=== PATIENT | male | born 1985 | race Hispanic/Latino ===

== ENCOUNTER 2017-12-11 08:18 | Inpatient (IN) | payer SELFPAY ==
[2017-12-11 08:54] LABS: #Basophils 0.1 thou/uL (0.0-0.2); #Eosinphils 0.2 thou/uL (0.0-0.7); #Lymphocytes 2.5 thou/uL (1.20-3.40); #Monocytes 0.5 thou/uL (0.11-0.59); #Neutrophils 4.5 thou/uL (1.40-6.50); %Basophils 0.8 % (0.0-1.0); %Eosinophils 2.2 % (0.0-10.0); %Lymphocytes 32.2 % (21.0-51.0); %Neutrophils 58.8 % (42.0-75.0); Hemoglobin 16.7 g/dL (14.0-18.0); Mean Corpuscular Volume 88.9 fL (78.0-98.0); Platelet Count 258 thou/uL (130-400); RBC Distribution Width 11.5 % (11.5-14.5); Red Blood Cell (RBC) Count 5.23 mill/uL (4.70-6.10); White Blood Cell (WBC) Count 7.7 thou/uL (4.8-10.8)
[2017-12-11 09:17] LABS: ALT (SGPT) 134 U/L (8-55); AST (SGOT) 42 U/L (5-34); Albumin 4.1 g/dL (3.5-5.0); Alkaline Phosphatase 95 U/L (40-150); Anion Gap 15 mmol/L (10-20); BUN (Urea Nitrogen) 17 mg/dL (8.9-20.6); Bilirubin, Total 0.6 mg/dL (0.2-1.2); Calc. Creatinine Clearance 0 mL/min (70-130); Calcium 9.3 mg/dL (7.8-10.44); Carbon Dioxide 24 mmol/L (22-29); Chloride 96 mmol/L (98-107); Estimated GFR-MDRD 59; Globulin 3.3 g/dL (2.4-3.5); Lipase 33 U/L (8-78); Potassium 4.2 mmol/L (3.5-5.1); Protein, Total 7.4 g/dL (6.0-8.3); Sodium 131 mmol/L (136-145)
[2017-12-11 09:25] LABS: Glucose 583 mg/dL (70-105)
[2017-12-11] MEDS ORDERED: Ondansetron ODT 4 MG TAB ONE (09:28)
[2017-12-11] MEDS ORDERED: Mag-Al 1200 mg/1200 mg/30 ML UDCUP ONE (09:29)
[2017-12-11] MEDS ORDERED: Pantoprazole 40 MG VIAL ONE (09:29)
[2017-12-11] MEDS ORDERED: Lidocaine Viscous Sol 2% 15 ml UD Cup ONE (09:29)
[2017-12-11 09:55] LABS: Bilirubin Negative (Negative); Blood, Urine Negative (Negative); Clarity CLEAR (Clear); Glucose, Urine (Dipstick) >=1000 mg/dL (Negative); Leukocyte Negative (Negative); Nitrite Negative (Negative); Protein, Urine (Dipstick) Negative (Neg-Trace); Specific Gravity, Urine 1.034 (1.002-1.036); Urobilinogen 0.2 mg/dL (0.2-1.0)
--- NOTE | 2017-12-11 11:42 | ULT ---
RIGHT UPPER QUADRANT ULTRASOUND: Date: 12/11/17 HISTORY: 32-year-old male with history of epigastric abdominal pain. FINDINGS: Coarse liver echogenicity, evidence for fatty change. There are multiple gallstones within the gallbl adder, with some gallbladder sludge and thickened gallbladder wall, without overt pericholecystic flu id. Common bile duct 0.4 cm. Visualized pancreas and right kidney are unremarkable. IMPRESSION: Multiple cholelithiasis with gallbladder sludge and thickened gallbladder wall without overt perichol ecystic fluid or ductal dilatation. Coarse liver echogenicity, evidence for fatty change. POS: [facility]
[2017-12-11] MEDS ORDERED: Ketorolac Tromethamine 30 MG/ML VIAL ONE (12:06)
[2017-12-11] MEDS ORDERED: PROPOFOL 200 MG/20 ML VIAL ONE (13:53)
[2017-12-11] MEDS ORDERED: Ondansetron HCl/PF 4 MG/2 ML Vial ONE (13:53)
[2017-12-11] MEDS ORDERED: Lidocaine 1% PF 5 ML VIAL ONE (13:53)
[2017-12-11] MEDS ORDERED: Glycopyrrolate 0.2 MG/ML 5 ML SYRINGE ONE (13:53)
--- NOTE | 2017-12-11 13:58 | HP ---
DATE OF ADMISSION: 12/11/2017 HISTORY OF PRESENT ILLNESS: Mr. Klein is a 32-year-old man who presented to emergency depa rtment today with insidious onset epigastric abdominal pain which started approximately [address] breakfast consisting of a croissant sandwich. Pain is described as sharp, rated at a 10/10, radi ating to his back. The patient admits to some nausea, but no emesis. Denies any change in his bowel habits. The patient denies any dyspnea or syncope. PAST SURGICAL HISTORY: Denies any previous medical problems. PAST SURGICAL HISTORY: Pertinent for right tympanoplasty as a child. SOCIAL HISTORY: He is single, lives independently. He is employed in the construction industry. He admits to smoking 2 cigarettes every other day. Admits to rare occasions of moderate amount of etha nol intake. He denies any illicit drug abuse. FAMILY HISTORY: Notable for heart disease and his mother who from complications there off. His father has heart disease, hypertension, chronic kidney disease as well as diabetes mellitus. PREHOSPITALIZATION MEDICATIONS: None. ALLERGIES: Patient denies any known drug allergies. REVIEW OF SYSTEMS: A 10-point review of systems essentially unremarkable except as stated in past nd dical history and chief complaint. PHYSICAL EXAMINATION: GENERAL: This reveals a 32-year-old normally developed man who is otherwise coherent and interactive and appears stated age. The patient is alert and oriented x3. He appears to be in no acute distres s at the time of my evaluation.N VITAL SIGNS: Today includes blood pressure 128/76, pulse 99, respiratory 16, temperature is 98.1 deg romulo Fahrenheit, oxygen saturation is 97% on room air. HEENT: Reveals normocephalic and atraumatic. Pupils are equal, round, and reactive to light and acc ommodation. Extraocular muscles are intact bilaterally. No sclerae icterus is present. Oral mucosa is pink and moist. No lesions are noted. NECK: Supple. No palpable lymphadenopathy or thyromegaly present. HEART: Reveals regular rate and rhythm, no murmurs or gallops auscultated. LUNGS: Clear to auscultation bilaterally. Breathing regular and unlabored. ABDOMEN: Soft with moderate epigastric tenderness to palpation. Liver and spleen are nonpalpable be low costal margins. EXTREMITIES: Reveals 2+ radial and pedal pulses bilaterally. No ankle edema is present. NEUROLOGIC: Reveals no focal deficits present. RADIOGRAPHIC FINDINGS: Today includes a gallbladder ultrasound which I have reviewed. This shows a thickened gallbladder wall with pericholecystic fluid. There is intraluminal gallstones and sludge. Common bile duct is normal in diameter at 4 mm. PERTINENT LABORATORY DATA: Today includes a CBC with 7700 white blood cells, hemoglobin and hematocr it 16.7 and 46.5 respectively. Platelet count is 258,000. Metabolic profile: Sodium 131, potassium 4.2, chloride is 96, bicarbonate is 24, BUN 17, creatinine is 1.40, glucose is 583, total bilirubin is 0.6, AST and ALT is 42 and 134 respectively. Alkaline phosphatase is normal at 95. IMPRESSION: 1. Acute cholecystitis with cholelithiasis. 2. Acute hyperglycemia likely type 2 diabetes mellitus, undiagnosed. RECOMMENDATIONS: 1. Laparoscopic cholecystectomy with intraoperative cholangiogram. 2. Glucose control. We will ask Medicine Service to evaluate the patient postoperatively for outpat ient diabetes management. The above findings and recommendations have been discussed with the patient who indicates understandi ng of the information given. I answered his questions.
[2017-12-11] MEDS ORDERED: Bupivacaine HCl 0.25%/Epi 0.0005/PF 10 ML VIAL FS ONE ×2 (15:51)
[2017-12-11] MEDS ORDERED: Fentanyl 100 MCG/2 ML VIAL ONE ×3 (15:53→16:52)
[2017-12-11] MEDS ORDERED: HYDROmorphone 0.5 MG/0.5 ML SYRINGE ONE (15:53)
[2017-12-11] MEDS ORDERED: hydrALAZINE 20 MG/ML VIAL SLOW IVP PRN (16:41)
[2017-12-11] MEDS ORDERED: Calcium Carbonate 500 MG ChewTAB PO PRN (16:41)
[2017-12-11] MEDS ORDERED: Ondansetron HCl/PF 4 MG/2 ML Vial IVP PRN (16:41)
[2017-12-11] MEDS ORDERED: Dextrose 5% in Water 1,000 ML IV PRN (16:41)
[2017-12-11] MEDS ORDERED: Dextrose 50% Abboject 50 ML SYRINGE SLOW IVP PRN (16:41)
[2017-12-11] MEDS ORDERED: Mag-Al 1200 mg/1200 mg/30 ML UDCUP PO PRN (16:41)
[2017-12-11] MEDS ORDERED: Promethazine HCl 25 MG/ML VIAL IM PRN (16:41)
[2017-12-11] MEDS ORDERED: traMADol HCl 50 MG TAB PO PRN (16:44)
[2017-12-11] MEDS ORDERED: HYDROmorphone 2 MG/ML VIAL SLOW IVP PRN (17:12)
[2017-12-11] MEDS ORDERED: Meperidine HCl/PF 25 MG/ML VIAL SLOW IVP PRN (17:12)
[2017-12-11] MEDS ORDERED: Promethazine HCl 25 MG/ML VIAL SLOW IVP PRN (17:12)
[2017-12-11] MEDS ORDERED: Morphine Sulfate 2 MG/ML SYRINGE SLOW IVP PRN (17:12)
[2017-12-11] MEDS: Ketorolac Tromethamine 30 MG/ML VIAL IVP PRN (20:45)
[2017-12-11] MEDS: traMADol HCl 50 MG TAB PO PRN (20:46)
[2017-12-11] MEDS ORDERED: Enoxaparin Sodium 40 MG/0.4 ML SYRINGE SC SCH (21:00)
[2017-12-11] MEDS: Acetaminophen 500 MG TAB PO SCH ×2 (22:12→22:15)
[2017-12-11] MEDS: Famotidine 20 MG TAB PO SCH (22:13)
[2017-12-11] MEDS: HumaLOG 300 UNITS/3 ML VIAL SC PRN (22:27)
[2017-12-11] MEDS: Famotidine/PF 20 mg/2ml Vial SLOW IVP SCH (23:40)
--- NOTE | 2017-12-11 23:53 | OP ---
DATE OF PROCEDURE: 12/11/2017 PREOPERATIVE DIAGNOSIS: Acute cholecystitis with cholelithiasis. POSTOPERATIVE DIAGNOSIS: Acute cholecystitis with cholelithiasis. SURGEON: Andrea Meeks DO ANESTHESIA: General endotracheal. ESTIMATED BLOOD LOSS: 20 mL. FLUIDS GIVEN: 1100 mL of crystalloids. SPONGE AND INSTRUMENT COUNT: Certified as correct x2. COMPLICATIONS: None apparent at the time of operation. PROCEDURE PERFORMED: Laparoscopic cholecystectomy. INDICATIONS FOR PROCEDURE: This is a 32-year-old man presented with epigastric pain, which started this morning following breakfast. Clinical and radiographic examination was consistent with acute cholecystitis with cholelithiasis, for which the patient was brought to the operating room for laparoscopic cholecystectomy. Additionally, the patient presented with blood glucose over 500. He w as treated for his hyperglycemia and brought to the operating room for laparoscopic cholecystectomy. FINDINGS: Consistent with gallbladder in the usual anatomic location, completely encased by omental adhesions. DESCRIPTION OF PROCEDURE: Informed consent was obtained from the patient, who was brought to the ope rating room and placed in supine position. Following general anesthesia, abdomen was sterilely prepp ed and draped in usual fashion. The skin below the umbilicus was infiltrated with 0.25% Marcaine wit h epinephrine. A small curvilinear infraumbilical incision was made using an 11-scalpel. Umbilical stalk grasped with a Mayito and elevated. Veress needle was inserted through this incision and place d in the peritoneal cavity through which the abdomen was insufflated with 2 liters of CO2 gas. Intra abdominal pressure was noted at 2 mmHg. Following abdominal insufflation, Veress needle was removed and 5-mm trocar introduced using a Visiport under laparoscopy. Laparoscopy further reveals gallbladd er in the usual anatomic location encased by omental adhesions. Under direct laparoscopy, a 12-mm ep igastric and two 5-mm right lateral subcostal ports were placed after the overlying skin were infiltr ated with 0.25% Marcaine with epinephrine and appropriate incision was made. The patient was placed in a reverse Trendelenburg position, rotated to his left. I then introduced a [place] dissector wit h cautery through the epigastric port site using this to take down omental adhesions with cautery to achieve hemostasis. Prestige grasper was then introduced through the right lateral subcostal port gr asping the fundus of the gallbladder, which was elevated cephalad. Omental adhesions were then taken down from the remainder of the gallbladder. A second Prestige grasper was introduced through the [facility] medial subcostal port, grasping the Gumaro's pouch which was retracted laterally. Cystic duct was carefully dissected free from surrounding structures at the triangle of Calot. This was divided between clips, applying two clips proximally and one clip at the junction of the cystic duct and gall bladder. Cystic artery was also dissected free from surrounding structures and divided between clips in a similar fashion. Gallbladder was removed from the liver bed using cautery. It was delivered o ff the abdominal cavity using an EndoCatch. Operative site was inspected for good hemostasis. Findi ng no other pathology, laparoscopy was terminated. Fascia of the epigastric port was closed using 0 Vicryl suture and Endo Close device under laparoscopy. Abdomen was desufflated. All ports and instr uments were removed and accounted for. Skin incisions were closed using 4-0 Monocryl suture in subcu ticular fashion. Dermabond was applied over incisional closure. The patient tolerated this operatio n without any apparent complications and was returned to recovery room in satisfactory condition.
[2017-12-12] MEDS: Ketorolac Tromethamine 30 MG/ML VIAL IVP PRN ×2 (01:15→07:39)
[2017-12-12] MEDS: traMADol HCl 50 MG TAB PO PRN (01:16)
[2017-12-12] MEDS: Lactated Ringer's 1,000 ML IV SCH ×2 (01:18→01:24)
[2017-12-12 05:37] LABS: ALT (SGPT) 152 U/L (8-55); AST (SGOT) 67 U/L (5-34); Albumin 3.4 g/dL (3.5-5.0); Alkaline Phosphatase 76 U/L (40-150); Anion Gap 9 mmol/L (10-20); BUN (Urea Nitrogen) 19 mg/dL (8.9-20.6); Bilirubin, Total 0.4 mg/dL (0.2-1.2); Calc. Creatinine Clearance 0 mL/min (70-130); Calcium 8.6 mg/dL (7.8-10.44); Carbon Dioxide 30 mmol/L (22-29); Chloride 100 mmol/L (98-107); Estimated GFR-MDRD 72; Globulin 2.8 g/dL (2.4-3.5); Glucose 271 mg/dL (70-105); Potassium 4.4 mmol/L (3.5-5.1); Protein, Total 6.2 g/dL (6.0-8.3); Sodium 135 mmol/L (136-145)
[2017-12-12] MEDS: Acetaminophen 500 MG TAB PO SCH (06:05)
[2017-12-12] MEDS: HumaLOG 300 UNITS/3 ML VIAL SC PRN (06:11)
[2017-12-12 08:40] VITALS: BP 125/59; TEMP 99
[2017-12-12] MEDS ORDERED: Insulin Glargine 10 UNITS in Pre-Filled Syringe 1 EACH SC SCH (09:00)
[2017-12-12] MEDS: Famotidine/PF 20 mg/2ml Vial SLOW IVP SCH (09:24)
[2017-12-12] MEDS: Famotidine 20 MG TAB PO SCH (09:27)
== END 2017-12-12 10:39 | disposition home or self-care (01) | DRG 419 ==
LOC: ERS 08:18 → 3SE 13:55 → SDC/OP 14:23 → 3SE 19:14
PROVIDERS: ADMIT Surgery; ATTEND Surgery
PROC: 0FT44ZZ Resection of Gallbladder, Percutaneous Endoscopic Approach (ICD-10-PCS; principal; 2017-12-11)
DX: K80.10 Calculus of gallbladder with chronic cholecystitis without obstruction (principal); E11.65 Type 2 diabetes mellitus with hyperglycemia; F17.210 Nicotine dependence, cigarettes, uncomplicated
CPT/HCPCS: 36415; 36416; 76705; 80053; 81003; 83690; 85025; 88304; 93005; 96361; 96374; 96375; 99406; C9113; J0131; J1170; J1650; J1885; J2001; J2270; J2405; J2704; J3010; Q0162